=== PATIENT | male | born 1975 | race Caucasian/White ===

== ENCOUNTER 2024-12-30 17:03 | Inpatient (IN) | payer BC, SELFPAY ==
--- OUTSIDE RECORDS SUMMARY | 2024-12-30 17:06 | XMS_ITS | Clinical Summary ---
Author Organization [facility] Address [address] [place] [address] Care Team Providers Care Straightedge Man Name Role Phone Barbara Swan MD Unavailable Emerita Ruiz DO Primary Care Provider [phone] Allergies No known active allergies Medications Blood Sugar Diagnostic, Drum (ACCU-CHEK COMPACT PLUS TEST) strpIndications: Diabetes 1.5, managed as type 1 (HC) Dispense item covered by pt ins. 250.00 NIDDM type II - Test 2 times/day. Reason: Unstable diabetes 200 Strip 11 09/29/19 18 Active blood sugar diagnostic (BLOOD GLUCOSE TEST) stripIndications :Diabetes 1.5, managed as type 1 (HC) Dispense item covered by pt ins. E11.9 NIDDM type II - Test 2 times/day. Reason: High A1C 100 Each 11 06/30/20 18 Active blood-glucose meterIndications :Diabetes 1.5, managed as type 1 (HC) Dispense meter, test strips, lancets covered by pt ins. E11.9 NIDDM type II - Test 2 times/day. Reason: High A1C 1 Device 06/30/20 18 Active Cholecalciferol, Vitamin D3, 10,000 unit capsule Take 1 capsule by mouth once daily. 0 10/03/19 19 Active lancets (Accu-Chek FastClix Lancing Dev)Indications: Diabetes 1.5, managed as type 1 (HC) Dispense item covered by pt ins. 250.00 NIDDM type II - Test 2 times/day. Reason: Unstable diabetes 200 Each 11 09/25/19 Active levothyroxine (SYNTHROID) 112 mcg tabletIndication s:Hypothyroidism , unspecified type Take 1 Tablet (112 mcg) by mouth before breakfast. 90 Tablet 1 04/02/20 23 Active Additional Information Patient taking differently:112 mcg Oral BEFORE BREAKFAST,When he remembers, Reported on 08/24/2024 venlafaxine (EFFEXOR XR) 75 mg cp24 Extended-Release capsule Take 75 mg by mouth once daily with a meal. 07/07/20 Active semaglutide (Ozempic) 2 mg/dose (8 mg/3 mL) penIndications:D iabetes 1.5, managed as type 1 (HC) Inject 0.75 mL (2 mg) subcutaneous once weekly. 9 mL 3 03/03/20 24 Active atorvastatin (LIPITOR) 40 mg tabletIndication s:Diabetes 1.5, managed as type 1 (HC) Take 1 Tablet (40 mg) by mouth at bedtime. 90 Tablet 4 12/10/19 24 Active tamsulosin (FLOMAX) 0.4 mg capsuleIndicatio ns:Urinary frequency Take 1 Capsule (0.4 mg) by mouth once daily after a meal. 90 Capsule 1 12/10/19 24 Active LORazepam 1 mg tablet TAKE 1/2-1 TABLET BY MOUTH ONCE DAILY NEEDED FOR EMERGENT PANIC 07/25/20 24 Active empagliflozin (Jardiance) 25 mg tabletIndication s:Diabetes 1.5, managed as type 1 (HC) Take 1 Tablet (25 mg) by mouth once daily. 90 Tablet 3 08/24/20 24 Active hydrOXYzine HCL (ATARAX) 50 mg tabletIndication s:Insomnia, idiopathic Take 50 mg at bedtime 90 Tablet 3 08/24/20 24 Active metFORMIN (GLUCOPHAGE) 1,000 mg tabletIndication s:Diabetes 1.5, managed as type 1 (HC) Take 1 Tablet (1,000 mg) by mouth two times daily with meals. 180 Tablet 3 08/24/20 24 Active Semglee,insulin glarg-yfgn,Pen 100 unit/mL (3 mL) penIndications:D iabetes 1.5, managed as type 1 (HC) Inject 65 U subcutaneously daily 45 mL 3 08/24/20 24 Active pen needle (BD Insulin Pen Needle UF) 31 gauge x 5/16 (disposable insulin pen needle)Indicatio ns:Diabetes 1.5, managed as type 1 (HC) USE TO ADMINISTER INSULIN AT HOME DIRECTED 100 Each 3 08/24/20 24 Active sildenafil citrate (VIAGRA) 50 mg tabletIndication s:Erectile dysfunction of organic origin Take 1 Tablet (50 mg) by mouth once daily if needed for Erectile Dysfunction. Take 30 minutes to 4 hours before sexual activity. Max 100mg/24hr. 30 Tablet 08/24/20 24 Active semaglutide, weight loss, (Wegovy) 1.7 mg/0.75 mL subcutaneous penIndications:D iabetes 1.5, managed as type 1 (HC) Inject 1.7 mg subcutaneous once weekly. 6 mL 1 10/25/19 25 Active semaglutide (OZEMPIC) 1 mg/dose (4 mg/3 mL) subcutaneous penIndications:D iabetes 1.5, managed as type 1 (HC) Inject 1 mg subcutaneous once weekly. 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 Screening for endocrine, metabolic and immunity disorder 04/02/2015 Unspecified hypothyroidism 11/15/2007 Decreased libido 08/18/2007 Resolved Problems Problem Noted Date Diagnosed Date Resolved Date body odor 08/18/2007 12/15/2021 Encounters Date Type Department Care Team Description 10/31/2024 Telephone [facility] [address] [place] [address] Emerita Ruiz DO Prior Authorization (semaglutide, weight loss, (Wegovy) 1.7 mg/0.75 mL subcutaneous pen - CLOSED ) 10/30/2024 Telephone [facility] [address] [place], [place] [id number] Emerita Ruiz DO Medication Management (semaglutide, weight loss, (Wegovy) 1.7 mg/0.75 mL subcutaneous pen) 10/22/2024 Refill [facility] [address] [place] [address] Emerita Ruiz DO Refill Request (Ozempic) from Last 3 Months Immunizations Immunization Administration Dates Next Due COVID-19 VACCINE SPIKEVAX (M ODERNA 50MCG/0.5ML) 12YO+ PFS 07/09/2023 COVID-19 vaccine (Pfizer-Bio NTech 30mcg/0.3mL) PF, MDV 07/18/2021 INFLUENZA, IIV3 PF (AGE >= 6 MO) 06/08/2024 Influenza A (H1N1), Inactivated 07/31/2009 Influenza, IIV3 (Age 6-35 mos) 2,07/08/2011,08/25/2010,2008 Influenza, IIV3 (Age >=3 years) 06/13/2014,06/12 Influenza, IIV4 07/09/2023, 2,06/30/2018,2014 Influenza, IIV4 (=>6mos) MDV 07/18/2021,06/21/20,06/15/2019 Influenza, Whole Virus 06/16/2017 Td, Preservative Free (age > = 7 Years) 03/02/2008 Tdap 08/25/2021,06/10/2008 Family History Medical History Relation Name Comments Heart Disease Father Hypertension Father Thyroid Disease Father hyper Diabetes Maternal Grandmother Glaucoma Maternal Grandmother Thyroid Disease Mother hypo Relation Name Status Comments Father Maternal Grandmother Mother Social History Tobacco Use Types Packs/Day Years Used Date Smoking Tobacco: Never Smokeless Tobacco: Never Tobacco Cessation:Counseling Given: Yes Alcohol Use Standard Drinks/Week Comments Yes 0 (1 standard drink = 0.6 oz pur e alcohol) twice a month PHQ-2 Answer Date Recorded PHQ-2 TOTAL SCORE 2 03/23/2024 Social Connections Answer Date Recorded Do you often feel lonely or isolated from those around you? 0 04/27/2024 Financial Resource Strain Answer Date R ecorded Difficulty of Paying Living Expenses 3 04/27/2024 Difficulty of Paying Living Expenses Not on file 04/27/2024 Food Insecurity Answer Date Recorded Do you worry your food will run out before you are able to buy more? 1 04/27/2024 Transportation Needs Answer Date Record ed Does lack of transportation keep you from medica l appointments? 1 04/27/2024 Does lack of transportation keep you from work, meetings or getting things that you need? 1 04/27/2024 Housing Stability Answer Date Recorded What is your housing situation today? 1 04/27/2024 Utilities Answer Date Recorded Do you have trouble paying f or utilities (for example, heat, electricity, water, phone)? 1 04/27/2024 Sex and Gender Information Value Date Recorded Sex Assigned at Not on file Legal Sex Male 7:06 PM HEEL SEWER Gender Identity Not on file Sexual Orientation Straight 08/20/2024 1: 46 PM HEEL SEWER 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 Not on file Not on file Not on file Not on file Not on file Obstetrics History Last Filed Vital Signs Vital Sign Reading Time Taken Comments Blood Pressure 112/68 08/24/2024 9:37 AM HEEL SEWER Pulse 60 08/24/2024 9:37 AM HEEL SEWER Temperature 36.7 C (98.1 F) 04/27/2024 10:39 AM CDT Respiratory Rate 20 03/23/2024 9:24 AM CDT Oxygen Saturation 96% 04/27/2024 10:39 AM CDT Inhaled Oxygen Concentration - - Weight 96.2 kg (212 lb) 08/24/2024 9:37 AM HEEL SEWER Height 188.6 cm (6' 2.25) 08/24/2024 9:37 AM CS T Body Mass Index 27.04 08/24/2024 9:37 AM HEEL SEWER Plan of Treatment Health Maintenance Due Date Last Done Comments HIV for age 15-65 11/23/1991 Hepatitis C screening for ag e 18-79 1994 Pneumococcal series for age 6-49 (1 of 2 - PCV) 11/23/1995 Colonoscopy through age 75 2021 Depression screening for age 12+ 03/23/2025 03/23/2024, 04/02/2023, 01/30/2022, Additional history exists BMI (ht and wt on same day) for age 18+ 08/24/2025 08/24/2024, 03/23/2024, 04/02/2023, Additional history exists Lipids for age 45-75 03/23/2029 03/23/2024, 04/02/2023, 01/06/2022, Additional history exists Tetanus booster 08/25/2031 08/25/2021, 01/2008, 03/02/2008 Tdap Completed 08/25/2021, 06/10/2008 COVID-19 vaccine series Completed 05/13/20 24, 07/09/2023, 05/23/2022, Additional history exists Influenza Vaccine Completed 06/08/2024, , 06/23/2022, Additional history exists Procedures Procedure Name Priority Date/Time Associated Diagnosis Comments LIPID PANEL Routine 03/23/2024 9:11 AM CDT Diabetes 1.5, managed as type 1 (HC) from Last 3 Months or Most Recently Relevant to Health Maintenance Results * (ABNORMAL) LIPID PANEL (03/23/2024 9:11 AM CDT) CHOLESTEROL,TOTAL 203(H) 100 - 199 mg/dL 03/23/2024 7:17 PM CDT [facility] Comment: Cholesterol, Total Reference Ranges Desirable <200 mg/dL Borderline 200-239 mg/dL High >=240 mg/dL TRIGLYCERIDES 191(H) <150 mg/dL 03/23/2024 7:[address] [facility] HDL CHOLESTEROL 33(L) >40 mg/dL 7:[address] [facility] NON-HDL CHOLESTEROL 170(H) <145 mg/dl 03/23/2024 7:[address] [facility] CHOL/HDL RATIO 6.15(H) <4.50 03/23/2024 7:[address] [facility] LDL CHOLESTEROL 132(H) <=130 mg/dL 03/23/2024 7:[address] [facility] VLDL CHOLESTEROL 38(H) <=30 mg/dL 03/23/2024 7:[address] [facility] PROVIDER ORDERED STATUS RANDOM 03/23/2024 7:17 PM CDT [facility] Blood BLOOD SPECIMEN / Unknown Venipuncture / Unknown 03/23/2024 9:11 AM CDT 03/23/2024 9:15 AM CDT us Emerita Ruiz DO CHEMISTRY Final Res ult [facility] [address] [place] [id number], [place] from Last 3 Months or Most Recently Relevant to Health Maintenance Insurance Care Teams Straightedge Man Relationship Specialty Start Date End Date Emerita Ruiz DO [address] [place] [address] PCP - General Family Practice 09/24/17 Barbara Swan MD 11/03/07
[2024-12-30 17:31] VITALS: BP 115/81; PULSE 124; RESP 14; TEMP 36.7; O2SAT 96; BMI 27.0
--- NOTE | 2024-12-30 18:06 | CRLHL7_ITS ---
For Patients: As a result of the Century Cures Act, medical imaging exams and procedure reports are released immediately into your electronic medical record. You may view this report before your referring provider. If you have questions, please contact your health care provider. INDICATION: Right-sided abdominal pain COMPARISON: None. TECHNIQUE: CT of the abdomen and pelvis with intravenous contrast (100 milliliters Isovue 370). FINDINGS: Lung bases: No pleural effusion. Liver: Smooth hepatic contour. No suspicious hepatic lesions are identified. Gallbladder and biliary tree: Unremarkable CT appearance. Spleen: No splenomegaly. Pancreas: Mild fatty infiltration/atrophy of the pancreas. Adrenal glands: Normal. Kidneys and ureters: No hydroureteronephrosis. No suspicious renal lesions are identified. Bladder: Unremarkable CT appearance. Visualized reproductive organs: Mildly enlarged prostate. Gastrointestinal tract: No focal abnormally dilated loops of bowel. Normal appendix. Peritoneal cavity: No free fluid or free air. Lymph nodes: No enlarged abdominal or pelvic lymph nodes by CT size criteria. Vessels: No abdominal aortic aneurysm. Abdominal and pelvic wall: There is a small amount of fat stranding/scarring in the subcutaneous fat of the bilateral inferior/ventral abdominal wall. Bones: There are osseous degenerative changes. There is a left-sided L5 pars defect with grade 1 anterolisthesis of L5 on S1. Attenuated appearance of the L5-S1 posterior elements possibly postoperative from a prior decompression. IMPRESSION: 1. No acute findings in the abdomen or pelvis. 2. Chronic and incidental findings as detailed above. Please note that all CT scans at this facility use dose modulation, iterative reconstruction, and/or weight-based dosing when appropriate to reduce radiation dose to as low as reasonably achievable. Dictated by Juan Manuel Hart MD @ 12/30/2024 7:07:47 PM (Electronically Signed)
--- NOTE | 2024-12-30 18:08 | ED_ITS ---
HPI - Abdominal Pain General Chief Complaint: Abdominal Pain Stated Complaint: Vomiting,Stomach pain Time Seen by Provider: 12/30/24 17:57 History of Present Illness HPI narrative: Patient is a 49-year-old gentleman was insulin-dependent diabetic who comes in today with approximately 18 hours of right-sided abdominal pain. He has had profound nausea and vomiting. No blood in his stool or vomitus. No diarrhea. Patient is taking Ozempic and recently went up on the dose. He also has been out of his insulin needles. He states that he has been compliant with the remainder of his regiment including metformin hydroxyzine and Jardiance. Patient has had no previous abdominal surgeries. Pain is localized to the right lower quadrant with radiation to the umbilicus. It is 6/10 in intensity. Related Data Home Medications ?Medication ?Instructions ?Recorded ?Confirmed empagliflozin 25 mg tablet 25 mg PO DAILY 12/30/24 12/30/24 (Jardiance) hydroxyzine HCl 50 mg tablet 50 mg PO QPM 12/30/24 12/30/24 insulin glargine-yfgn 100 unit/mL 65 unit subcut DAILY 12/30/24 12/30/24 (3 mL) subcutaneous pen (Semglee (insulin glargine-yfgn) Pen) metformin 1,000 mg tablet 1,000 mg PO BID 12/30/24 12/30/24 semaglutide 1 mg/dose (4 mg/3 mL) 1 mg subcut 12/30/24 subcutaneous pen injector (Ozempic) Allergies Allergy/AdvReac Type Severity Reaction Status Date / Time No Known Drug Allergies Allergy Verified 12/30/24 17:30 Review of Systems Status of ROS Reports: 10 or more systems reviewed and unremarkable except as noted in History and below Exam Narrative: Exam Narrative: EXAM GENERAL: Patient appears ill. EYES: No scleral icterus. LYMPH: No supraclavicular or cervical lymphadenopathy. SKIN: Visible skin seen during exam normal or with benign process only. EXT: No dependent lower extremity pedal edema. HEART: Regular rate and rhythm with no murmurs, rubs, or gallops. LUNGS: Clear to auscultation bilaterally with no crackles or wheezes. ABD: Hypoactive bowel sounds with moderate pain to palpation right lower quadrant. PSYCH: Good eye contact, speech is not pressured. Const: Vital Signs, click to edit/add: Vital Signs - 24 hr 12/30/24 17:31 Temperature 98.0 F Pulse Rate [Pulse Oximeter] 124 H Respiratory Rate 14 Blood Pressure [Ri ght Upper Arm] 115/81 Pulse Oximetry 96 Oxygen Delivery Me thod Room Air Course Course ED Course: Patient seen and examined. IV started. Normal saline Zofran given. CBC comprehensive metabolic panel lipase lactate UA CT abdomen pelvis ordered. Vital Signs Vital signs: Initial Vital Signs Temperature 98.0 F 12/30/24 17:31 Temperature Source Temporal Artery Scan 12/30/24 17:31 Pulse Rate 124 H 12/30/24 17:31 Pulse Rhythm Regular 12/30/24 17:31 Respiratory Rate 14 12/30/24 17:31 Blood Pressure 115/81 12/30/24 17:31 Blood Pressure Mean 92 12/30/24 17:31 Blood Pressure Position Sitting 12/30/24 17:31 Pulse Oximetry 96 12/30/24 17:31 Oxygen Delivery Method Room Air 12/30/24 17:31 Vital Signs Temperature 98.0 F 12/30/24 17:31 Pulse Rate 124 H 12/30/24 17:31 Respiratory Rate 14 12/30/24 17:31 Blood Pressure 115/81 12/30/24 17:31 Pulse Oximetry 96 12/30/24 17:31 Oxygen Delivery Method Room Air 12/30/24 17:31 Temperature 98.0 F 12/30/24 17:31 Pulse Rate 124 H 12/30/24 17:31 Respiratory Rate 14 12/30/24 17:31 Blood Pressure 115/81 12/30/24 17:31 Pulse Oximetry 96 12/30/24 17:31 Oxygen Delivery Method Room Air 12/30/24 17:31 Medications Administered Medications: Generic Name Dose Route Start Last Admin Trade Name Freq PRN Reason Stop Dose Admin Sodium Chloride 1,000 mls @ 1,000 mls/hr 12/30/24 18:08 12/30/24 19:32 0.9 % Sodium Chloride 1000 Ml IV 12/30/24 19:07 Infused .Q1H ELIZABETH Infusion Sodium Chloride 1,000 mls @ 1,000 mls/hr 12/30/24 19:22 12/30/24 19:36 0.9 % Sodium Chloride 1000 Ml IV 12/30/24 20:21 1,000 mls/hr .Q1H ELIZABETH Administration Ondansetron HCl 4 mg 12/30/24 18:07 12/30/24 18:51 Ondansetron 2 Mg/Ml Inj IVP 12/30/24 18:08 4 mg ONCE ONE Administration Ondansetron HCl 4 mg 12/30/24 19:41 12/30/24 19:55 Ondansetron 2 Mg/Ml Inj IVP 12/30/24 19:42 4 mg ONCE ONE Administration MDM - Abdominal Pain MDM Narrative Medical decision making narrative: Patient is an insulin-dependent diabetic who presents with profound dehydration nausea vomiting and right-sided abdominal pain. CT of the abdomen pelvis is nonacute. He has significant ketones in his urine and has a significant metabolic acidosis. His blood sugars 225. He does take Ozempic which I do believe is contributing to his symptoms. I did visit with hospitalist and will be giving the patient 10 units of subcutaneous NovoLog. I have been aggressively hydrating the patient and the patient will be admitted for further evaluation and treatment. Lab Data Labs: Lab Results 12/30/24 12/30/24 Range/Units 18:10 19:00 WBC 17.06 H (4.50-11.00) K/uL RBC 5.93 H (4.30-5.90) m/uL Hgb 16.9 (13.5-17.5) gm/dL Hct 49.5 (37.0-53.0) % MCV 84 (80-100) fL MCH 29 (26-34) pg MCHC 34 (32-36) gm/dL RDW Coeff of Ngoc 11.9 (11.5-15.5) % Plt Count 299 (140-440) K/uL Neut % (Auto) 87.7 H (42.0-72.0) % Lymph % (Auto) 5.6 L (20-44) % Crane % (Auto) 4.6 (0.0-11.0) % Eos % (Auto) 0.1 (0.0-7.0) % Baso % (Auto) 0.2 (0.0-3.0) % Neut # (Auto) 15.00 H (1.7-7.0) K/uL Lymph # (Auto) 1.00 (0.90-2.90) K/uL Crane # (Auto) 0.80 (0.00-0.90) K/UL Eos # (Auto) 0.00 (0.00-0.50) K/uL Baso # (Auto) 0.00 (0.00-0.30) K/uL Abs Immat Gran (auto) 0.30 (0.00-0.30) K/uL Imm/Tot Granulo (auto) 1.8 % Sodium 139 (135-149) mmol/L Potassium 4.9 (3.6-5.1) mmol/L Chloride 101 (96-114) mmol/L Carbon Dioxide 9 L* (20-32) mmol/L Anion Gap 29 H (7-15) mEq/L BUN 23 (5-24) mg/dL Creatinine 1.1 (0.5-1.5) mg/dL Estimated Creat Clear 92.81 Estimated GFR 83 ml/min Glucose 225 H (60-115) mg/dL Lactate 3.5 H (0.5-1.9) mmol/L Calcium 8.9 (8.4-10.6) mg/dL Total Bilirubin 1.1 (0.1-1.5) mg/dL AST 32 (12-35) U/L ALT 35 (4-50) U/L Alkaline Phosphatase 102 (40-150) U/L Total Protein 7.7 (6.0-8.3) g/dL Albumin 4.9 (3.3-5.0) g/dL Lipase 27 (23-300) U/L Urine Color Yellow (Yellow) Urine Appearance Clear (Clear) Urine pH 5.5 (5.0-8.5) Ur Specific [place] >= 1.030 (1.000-1.030) Urine Protein Trace A (Negative) Urine Glucose (UA) 2+ A (Negative) Urine Ketones 4+ A (Negative) Urine Blood Negative (Negative) Urine Nitrite Negative (Negative) Urine Bilirubin Negative (Negative) Urine Urobilinogen 0.2 (0.2-1.0) Ur Leukocyte Esterase Negative (Negative) Urine RBC 0-2 (0-2) Urine WBC 0-2 (0-5) Ur Squamous Epith Cells None (None-Few) Urine Bacteria None (None) Discharge Plan Discharge Clinical Impression: Diabetic keto-acidosis Patient Disposition: Admitted As Observation Condition: Stable Activity Level: Other Discharge Diet: Other Prescriptions: No Action hydroxyzine HCl 50 mg tablet 50 mg PO QPM metformin 1,000 mg tablet 1,000 mg PO BID Jardiance 25 mg tablet 25 mg PO DAILY Ozempic 1 mg/dose (4 mg/3 mL) pen injector 1 mg subcut insulin glargine-yfgn [Semglee(insulin glarg-yfgn)Pen] 100 unit/mL (3 mL) insulin pen 65 unit subcut DAILY Follow Up/Referrals: Provider,Not a Local [Non-Staff] -
[2024-12-30] MEDS: 0.9 % SODIUM CHLORIDE 1000 ml 1,000 ML IV ×2 (18:50→19:36)
[2024-12-30] MEDS: ONDANSETRON 2 MG/ML inj 4 MG IVP ×3 (18:51→23:10)
[2024-12-30 18:54] LABS: Appearance Urine Clear (Clear); Bilirubin Urine Negative (Negative); Blood Urine Negative (Negative); Color Urine Yellow (Yellow); Glucose Urine 2+ (Negative); Ketones Urine 4+ (Negative); Leukocyte Esterase Urine Negative (Negative); Nitrite Urine Negative (Negative); Protein Urine Trace (Negative); Specific Gravity Urine >= 1.030 (1.000-1.030); Urobilinogen Urine 0.2 (0.2-1.0); pH Urine 5.5 (5.0-8.5)
[2024-12-30 19:08] LABS: Lactate* 3.5 mmol/L (0.5-1.9)
[2024-12-30 19:09] LABS: Basophils Percent Auto 0.2 % (0.0-3.0); Eosinophils Percent Auto 0.1 % (0.0-7.0); Hematocrit 49.5 % (37.0-53.0); Hemoglobin* 16.9 gm/dL (13.5-17.5); Immature Granulocytes Pct Auto 1.8 %; Lymphocytes Percent Auto 5.6 % (20-44); Mean Corpuscular HGB Conc 34 gm/dL (32-36); Mean Corpuscular Hemoglobin 29 pg (26-34); Mean Corpuscular Volume 84 fL (80-100); Monocytes Percent Auto 4.6 % (0.0-11.0); Neutrophils Percent Auto 87.7 % (42.0-72.0); Platelet Count* 299 K/uL (140-440); RDW Coefficient of Variation % 11.9 % (11.5-15.5); Red Blood Count 5.93 m/uL (4.30-5.90); White Blood Count* 17.06 K/uL (4.50-11.00)
[2024-12-30 19:12] LABS: Slide Review Reflex No
[2024-12-30 19:14] LABS: RBC Urine 0-2 (0-2); WBC Urine 0-2 (0-5)
--- OUTSIDE RECORDS SUMMARY | 2024-12-30 19:16 | XMS_ITS | Clinical Summary ---
Author Organization [facility] Address [address] [place] [address] Care Team Providers Care Custom Car Builder Name Role Phone Barbara Swan MD Unavailable [phone] Emerita Ruiz DO Primary Care Provider [phone] Allergies No known active allergies Medications Blood [...] Type Department Care Team Description 10/31/2024 Telephone [facility] [address] [place] [address] Emerita Ruiz DO Prior Authorization (semaglutide, weight loss, (Wegovy) 1.7 mg/0.75 mL subcutaneous pen - CLOSED ) 10/30/2024 Telephone [facility] [address] [place], [place] [phone] Emerita Ruiz DO Medication Management (semaglutide, weight loss, (Wegovy) 1.7 mg/0.75 mL subcutaneous pen) 10/22/2024 Refill [facility] [address] [place] [address] Emerita Ruiz DO Refill Request (Ozempic) from [...] on file Legal Sex 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 Gender Identity Not on file Sexual Orientation Straight 08/20/2024 1: 46 PM PLANT SCIENCE PROFESSOR 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 Not on file Not on file Not on file Not on file Not on file Obstetrics History Last Filed Vital Signs Vital Sign Reading Time Taken Comments Blood Pressure 112/68 08/24/2024 9:37 AM PLANT SCIENCE PROFESSOR Pulse 60 08/24/2024 9:37 AM PLANT SCIENCE PROFESSOR Temperature 36.7 C (98.1 F) 04/27/2024 10:39 AM CDT Respiratory Rate 20 03/23/2024 9:24 AM CDT Oxygen Saturation 96% 04/27/2024 10:39 AM CDT Inhaled Oxygen Concentration - - Weight 96.2 kg (212 lb) 08/24/2024 9:37 AM PLANT SCIENCE PROFESSOR Height 188.6 cm (6' 2.25) 08/24/2024 9:37 AM CS T Body Mass Index 27.04 08/24/2024 9:37 AM PLANT SCIENCE PROFESSOR Plan of Treatment Health Maintenance Due Date [...] - 199 mg/dL 03/23/2024 7:17 PM CDT [facility] Comment: Cholesterol, Total Reference Ranges Desirable <200 mg/dL Borderline 200-239 mg/dL High >=240 mg/dL TRIGLYCERIDES 191(H) <150 mg/dL 03/23/2024 7:17 PM CDT [facility] HDL CHOLESTEROL 33(L) >40 mg/dL 7:17 PM T [facility] NON-HDL CHOLESTEROL 170(H) <145 mg/dl 03/23/2024 7:17 PM CDT [facility] CHOL/HDL RATIO 6.15(H) <4.50 03/23/2024 7:17 PM T [facility] LDL CHOLESTEROL 132(H) <=130 mg/dL 03/23/2024 7:17 PM CDT [facility] VLDL CHOLESTEROL 38(H) <=30 mg/dL 03/23/2024 7:17 PM T [facility] PROVIDER ORDERED STATUS RANDOM 03/23/2024 7:17 PM CDT [facility] Blood BLOOD SPECIMEN / Unknown Venipuncture / Unknown 03/23/2024 9:11 AM CDT 03/23/2024 9:15 AM CDT us Emerita Ruiz DO CHEMISTRY Final Res ult [facility] [address] [place] [id number], [place] from Last 3 Months or Most Recently Relevant to Health Maintenance Insurance Care Teams Custom Car Builder Relationship Specialty Start Date End Date Emerita Ruiz DO [address] [place] [address] PCP - General Family Practice 09/24/17 Barbara Swan MD 11/03/07
[2024-12-30 19:26] LABS: Albumin* 4.9 g/dL (3.3-5.0); Chloride* 101 mmol/L (96-114); Potassium* 4.9 mmol/L (3.6-5.1); Sodium* 139 mmol/L (135-149)
[2024-12-30 19:29] LABS: Alanine Aminotransferase* 35 U/L (4-50); Alkaline Phosphatase* 102 U/L (40-150); Aspartate Amino Transferase* 32 U/L (12-35); Bilirubin Total* 1.1 mg/dL (0.1-1.5); Blood Urea Nitrogen* 23 mg/dL (5-24); Creatinine* 1.1 mg/dL (0.5-1.5); Est. Creatinine Clearance* 92.81; Estimated Glomerular Filt Rate 83 ml/min; Lipase* 27 U/L (23-300); Total Protein* 7.7 g/dL (6.0-8.3)
[2024-12-30 19:30] LABS: Calcium* 8.9 mg/dL (8.4-10.6); Glucose* 225 mg/dL (60-115)
[2024-12-30 19:35] LABS: Anion Gap 29 mEq/L (7-15)
[2024-12-30 19:41] LABS: Carbon Dioxide* 9 mmol/L (20-32)
[2024-12-30] MEDS: INSULIN ASPART 100 UNIT/ML 10 UNIT SUBCUT (20:06)
[2024-12-30] MEDS: 5 % DEXTROSE IN LAC RINGER'S 1,000 ML 250 ML IV (20:32)
--- NOTE | 2024-12-30 20:50 | P.IMHP_ITS ---
Assessment and Plan Assessment and plan (1) Diabetic keto-acidosis: Problem comment: Due to running out of insulin with ongoing use of empagliflozin lowering the blood sugar. Managed with subcutaneous insulin and close monitoring. Status: Acute (2) Lactic acidosis: Problem comment: Likely due to acute illness plus metformin therapy. Hold metformin. No apparent infection identified at this time.. Status: Acute (3) Right sided abdominal pain: Problem comment: Probably related to his DKA. Continue to re-evaluate for other causes of abdominal pain if symptoms do not resolve quickly Status: Acute (4) Intractable nausea and vomiting: Problem comment: Likely related to DKA. Continue to evaluate if symptoms do not resolve quickly Status: Acute (5) Diabetes mellitus type 1.5: Problem comment: I am concerned he has evolved in to a predominantly type 1 diabetic. He currently has contraindication to all his medications for type 2 diabetes, metformin, semaglutide, empagliflozin. I recommend he establish care with a safety technician to assist with management of his diabetes as soon as possible. In the meantime will likely need to be managed like a type 1 diabetic Status: Acute Plan 49-year-old male hospitalized with DKA. Also has lactic acidosis. This is likely a combination of factors including running out of insulin with ongoing use of empagliflozin and semaglutide and metformin. For now will need to treat his diabetes and complications with insulin alone. Initially will manage with subcu insulin, fluid resuscitation and close monitoring of electrolytes and monitoring for complications. Plan to initiate basal - bolus insulin and recommend outpatient endocrine follow-up. Total Time Spent Total Time Spent: Total time spent today is 85 minutes in coordination of care, reviewing outside records and discussion with patient and other providers ongoing management of DKA and diabetes Hospitalist- H&P: HPI History of Present Illness Date Seen: 12/30/24 Chief complaint: Vomiting,Stomach pain Narrative: Mingo Clements is a 49 year old male with diabetes mellitus type 1.5 presents with 1 day history of illness. Patient reported feeling well earlier in the week. He ran out of insulin taking his last dose of glargine on Wednesday, 4 days ago. On Wednesday he took an increased dose of Ozempic 0.75 ml (1.5mg) as prescribed by his doctor he had no symptoms of illness until yesterday when he noted that he had a headache and he was feeling fatigue. He has had a depressed appetite from the Ozempic but it seemed worse than usual yesterday. During the night last night he awoke at 4:00 a.m. with vomiting. He reports that he was vomiting about every 45 minutes. With the vomiting he had a right- sided abdominal pain. He has had continuous vomiting every 45 minutes through the day today. He has had minimal oral intake, primarily sips of water. Nonbloody emesis. 08/28/2010 he was diagnosed with diabetes mellitus. He was symptomatic with urinary frequency at that time. He was diagnosed by an safety technician at [facility] as having diabetes mellitus type 1.5 over a decade ago. He reports his blood sugars have been fairly well controlled with use of for medicines, empagliflozin 25 mg daily, metformin 1000 mg twice daily, semaglutide increased to 1.5 mg this past Wednesday and glargine 60 units every morning. Hemoglobin A1c was 7.5 on 08/24/2024. He has had no other complications of diabetes. He has not been hospitalized. No previous gastrointestinal problems. No previous gastrointestinal surgery. Review of Systems Narrative: Prior to the last 1-2 days he was feeling well [facility] Medical History (Updated 12/30/24 @ 21:17 by Piyush White MD) Depression ?F32.A - Depression, unspecified (ICD-10) Hypothyroidism ?E03.9 - Hypothyroidism, unspecified (ICD-10) Diabetes mellitus type 1.5 ?E13.9 - Other specified diabetes mellitus without complications (ICD-10) Surgical History (Updated 12/30/24 @ 21:06 by Piyush White MD) H/O vasectomy ?Z98.52 - Vasectomy status (ICD-10) H/O wisdom tooth extraction ?K08.409 - Partial loss of teeth, unspecified cause, unspecified class (ICD- 10) Family History (Updated 12/30/24 @ 21:06 by Piyush White MD) Father Heart disease High blood pressure Thyroid disease Mother Thyroid disease Social History (Updated 12/30/24 @ 21:08 by Piyush White MD) Narrative: Patient lives with his girlfriend Toshia in [facility]. 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 He does not smoke. He drinks alcohol once or twice a month. Code status is full. 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 Meds Home Medications and Allergies Home Medications ?Medication ?Instructions ?Recorded ?Confirmed ?Type empagliflozin 25 mg tablet 25 mg PO DAILY 12/30/24 12/30/24 History (Jardiance) hydroxyzine HCl 50 mg tablet 50 mg PO QPM 12/30/24 12/30/24 History insulin glargine-yfgn 100 unit/mL 65 unit subcut DAILY 12/30/24 12/30/24 History (3 mL) subcutaneous pen (Semglee (insulin glargine-yfgn) Pen) metformin 1,000 mg tablet 1,000 mg PO BID 12/30/24 12/30/24 History semaglutide 1 mg/dose (4 mg/3 mL) 1 mg subcut 12/30/24 History subcutaneous pen injector (Ozempic) Allergies Allergy/AdvReac Type Severity Reaction Status Date / Time No Known Drug Allergies Allergy Verified 12/30/24 17:30 Exam Narrative: Exam Narrative: He is alert appears in no distress. Gives his own history. Eyes normal. Oropharynx with marked dry mucous membranes. Neck is supple without mass or adenopathy. Respirations are clear to auscultation. Breathing is unlabored. Cardiovascular: S1, S2, regular rate and rhythm. No murmur gallop or rub. Abdomen: Bowel sounds active. Abdomen is soft with mild relatively diffuse right-sided tenderness. No focal tenderness. No mass. No peritonitis. External genitalia normal. Is intact pedal pulses. No edema. Intact sensation in his feet as well. No rash. Const: Vital Signs, click to edit/add: Vital Signs - 24 hr 12/30/24 17:31 Temperature 98.0 F Pulse Rate [Pulse Oximeter] 124 H Respiratory Rate 14 Blood Pressure [Ri ght Upper Arm] 115/81 Pulse Oximetry 96 Oxygen Delivery Me thod Room Air Hospitalist - H&P: Result Labs Labs: Short CBC 12/30/24 Range/Units 19:00 WBC 17.06 H (4.50-11.00) K/uL Hgb 16.9 (13.5-17.5) gm/dL Hct 49.5 (37.0-53.0) % Plt Count 299 (140-440) K/uL BMP 12/30/24 19:00 Sodium 139 Potassium 4.9 Chloride 101 Carbon Dioxide 9 L* BUN 23 Creatinine 1.1 Glucose 225 H Calcium 8.9 Liver Function 12/30/24 Range/Units 19:00 Total Bilirubin 1.1 (0.1-1.5) mg/dL AST 32 (12-35) U/L ALT 35 (4-50) U/L Alkaline Phosphatase 102 (40-150) U/L Albumin 4.9 (3.3-5.0) g/dL Urine 12/30/24 Range/Units 18:10 Urine Color Yellow (Yellow) Urine Appearance Clear (Clear) Urine pH 5.5 (5.0-8.5) Ur Specific [place] >= 1.030 (1.000-1.030) Urine Protein Trace A (Negative) Urine Glucose (UA) 2+ A (Negative) Imaging CT scan - abdomen: Radiologist's impression: INDICATION: Right-sided abdominal pain COMPARISON: None. TECHNIQUE: CT of the abdomen and pelvis with intravenous contrast (100 milliliters Isovue 370). FINDINGS: Lung bases: No pleural effusion. Liver: Smooth hepatic contour. No suspicious hepatic lesions are identified. Gallbladder and biliary tree: Unremarkable CT appearance. Spleen: No splenomegaly. Pancreas: Mild fatty infiltration/atrophy of the pancreas. Adrenal glands: Normal. Kidneys and ureters: No hydroureteronephrosis. No suspicious renal lesions are identified. Bladder: Unremarkable CT appearance. Visualized reproductive organs: Mildly enlarged prostate. Gastrointestinal tract: No focal abnormally dilated loops of bowel. Normal appendix. Peritoneal cavity: No free fluid or free air. Lymph nodes: No enlarged abdominal or pelvic lymph nodes by CT size criteria. Vessels: No abdominal aortic aneurysm. Abdominal and pelvic wall: There is a small amount of fat stranding/scarring in the subcutaneous fat of the bilateral inferior/ventral abdominal wall. Bones: There are osseous degenerative changes. There is a left-sided L5 pars defect with grade 1 anterolisthesis of L5 on S1. Attenuated appearance of the L5-S1 posterior elements possibly postoperative from a prior decompression. IMPRESSION: 1. No acute findings in the abdomen or pelvis. 2. Chronic and incidental findings as detailed above.
--- NOTE | 2024-12-30 20:57 | ED.NURSE ---
blood sugar taken before pt left to go to med surg floor. BS 241, pt slightly nauseous.
[2024-12-30 21:01] VITALS: BP 116/72; PULSE 112; RESP 20; TEMP 36.8; O2SAT 99; BMI 25.2
[2024-12-30 21:24] LABS: Troponin I* < 0.01 ng/mL (0.01-0.04)
[2024-12-30] MEDS: PROCHLORPERAZINE 5 MG/ML VIAL IV (21:31)
[2024-12-30] MEDS: INSULIN ASPART 100 UNIT/ML SUBCUT ×2 (21:33→23:05)
[2024-12-30] MEDS: INSULIN GLARGINE,HUM.REC.ANLOG 100 UNIT/ML INSULN.PEN 30 UNIT SUBCUT (21:35)
[2024-12-30 21:51] LABS: Magnesium* 1.9 mg/dL (1.5-2.6)
[2024-12-30 21:54] LABS: Phosphorus* 7.3 mg/dL (2.5-4.5)
[2024-12-30 23:00] VITALS: BP 102/57; PULSE 111; PULSE 112; PULSE 114; RESP 20; TEMP 37.2; O2SAT 98
[2024-12-30] MEDS: 5 % DEXTROSE IN LAC RINGER'S 1,000 ML 500 ML IV (23:04)
[2024-12-30 23:08] LABS: HCO3 VBG 14 mmol/L (21-28); PCO2 VBG 36 mmHG (40-50); PO2 VBG < 30.1 mmHG (25-47)
[2024-12-30 23:10] LABS: Lactate* 1.2 mmol/L (0.5-1.9); pH VBG 7.184 (7.32-7.43)
[2024-12-30 23:27] LABS: Chloride* 107 mmol/L (96-114); Potassium* 5.1 mmol/L (3.6-5.1); Sodium* 139 mmol/L (135-149)
[2024-12-30 23:30] LABS: Anion Gap 21 mEq/L (7-15); Blood Urea Nitrogen* 22 mg/dL (5-24); Carbon Dioxide* 11 mmol/L (20-32); Creatinine* 0.9 mg/dL (0.5-1.5); Est. Creatinine Clearance* 113.44; Estimated Glomerular Filt Rate 105 ml/min
[2024-12-30 23:31] LABS: Calcium* 8.2 mg/dL (8.4-10.6); Glucose* 305 mg/dL (60-115); Phosphorus* 3.6 mg/dL (2.5-4.5)
[2024-12-31] MEDS: INSULIN ASPART 100 UNIT/ML SUBCUT ×8 (00:50→14:56)
[2024-12-31] MEDS: 5 % DEXTROSE IN LAC RINGER'S 1,000 ML 250 ML IV ×2 (00:51→05:14)
[2024-12-31 03:00] VITALS: BP 103/64; PULSE 99; RESP 20; TEMP 37; O2SAT 93
--- NOTE | 2024-12-31 06:28 | PC.NURSE ---
End of shift report [id number]: Alert and oriented x 4. patient reporting nausea upon admission to floor, PRN zofran administered prior to admission not effective. MD updated and new order for PRN prochlorperazine. Patient reporting excessive thirst, education provided on signs and symptoms of diabetes. Bowel sounds active x 4 quadrants. Tolerating clear liquids well. Denies any blurry or double vision. Q2H BG checks with SS insulin administered per protocol. Denies any shortness of breath or chest pain. Transfers and ambulates independently.
[2024-12-31 06:40] LABS: Basophils Percent Auto 0.2 % (0.0-3.0); Eosinophils Percent Auto 0.3 % (0.0-7.0); Hematocrit 39.6 % (37.0-53.0); Hemoglobin* 13.9 gm/dL (13.5-17.5); Immature Granulocytes Pct Auto 0.9 %; Lymphocytes Percent Auto 14.6 % (20-44); Mean Corpuscular HGB Conc 35 gm/dL (32-36); Mean Corpuscular Hemoglobin 29 pg (26-34); Mean Corpuscular Volume 82 fL (80-100); Monocytes Percent Auto 8.9 % (0.0-11.0); Neutrophils Percent Auto 75.1 % (42.0-72.0); Platelet Count* 260 K/uL (140-440); RDW Coefficient of Variation % 11.8 % (11.5-15.5); Red Blood Count 4.81 m/uL (4.30-5.90); White Blood Count* 12.07 K/uL (4.50-11.00)
[2024-12-31 06:44] LABS: Lactate* 0.8 mmol/L (0.5-1.9)
[2024-12-31 06:50] LABS: Slide Review Reflex No
[2024-12-31 07:00] VITALS: BP 87/60; PULSE 91; PULSE 94; RESP 16; TEMP 36.8; O2SAT 95
[2024-12-31 07:09] LABS: Chloride* 110 mmol/L (96-114); Sodium* 137 mmol/L (135-149)
[2024-12-31 07:12] LABS: Anion Gap 7 mEq/L (7-15); Blood Urea Nitrogen* 18 mg/dL (5-24); Carbon Dioxide* 20 mmol/L (20-32); Creatinine* 0.7 mg/dL (0.5-1.5); Est. Creatinine Clearance* 145.85; Estimated Glomerular Filt Rate 114 ml/min
[2024-12-31 07:13] LABS: Calcium* 8.3 mg/dL (8.4-10.6); Glucose* 169 mg/dL (60-115)
[2024-12-31 07:47] LABS: PCO2 VBG 40 mmHG (40-50); PO2 VBG 63.4 mmHG (25-47); pH VBG 7.34 (7.32-7.43)
[2024-12-31 07:48] LABS: HCO3 VBG 22 mmol/L (21-28)
[2024-12-31] MEDS: INSULIN GLARGINE,HUM.REC.ANLOG 100 UNIT/ML INSULN.PEN 30 UNIT SUBCUT (08:38)
[2024-12-31 11:00] VITALS: BP 105/88; PULSE 103; RESP 16; TEMP 36.9; O2SAT 96
--- NOTE | 2024-12-31 12:27 | P.IMPN_ITS ---
Assessment and Plan Assessment and plan (1) Diabetic keto-acidosis: Problem comment: Due to running out of insulin with ongoing use of empagliflozin lowering the blood sugar. Managed with subcutaneous insulin and close monitoring. - 12/31 DKA resolved: pH now wnl (7.34), AG closed (7), BG<200 (169). Stop D5LR. Status: Resolved (2) Diabetes mellitus type 1.5: Problem comment: I am concerned he has evolved in to a predominantly type 1 diabetic. He currently has contraindication to all his medications for type 2 diabetes, metformin, semaglutide, empagliflozin. I recommend he establish care with a well site drilling engineer to assist with management of his diabetes as soon as possible. In the meantime will likely need to be managed like a type 1 diabetic - 12/31 DKA now resolved. Patient has not used mealtime insulin or ISS before. Based on what I am seeing in his current insulin needs and adjusting for the fact that he has been getting D5LR, I will start with 5units SA insulin with each meal plus ISS ACHS while continuing his current dose of LA insulin (divided to BID now). Due to lower BP and mild tachycardia, will keep him yet tonight for monitoring and teaching. Plan to d/c home tomorrow on LA insulin + mealtime + ISS. Status: Acute (3) Lactic acidosis: Problem comment: Likely due to acute illness plus metformin therapy. Hold metformin. No apparent infection identified at this time.. - 12/30 lactate 3.5 -> 1.2 -> 12/31 lactate 0.8 Status: Resolved (4) Right sided abdominal pain: Problem comment: Probably related to his DKA. Continue to re-evaluate for other causes of abdominal pain if symptoms do not resolve quickly Status: Resolved (5) Intractable nausea and vomiting: Problem comment: Likely related to DKA. Continue to evaluate if symptoms do not resolve quickly Status: Resolved Total Time Spent Total Time Spent: Today I spent 50 minutes seeing the patient, reviewing [facility] and EPIC notes/diagnostics/labs, discussing the care plan with our care team that includes social work, PT/OT, pharmacy, RT, fci and documenting my impressions and plan in the medical record. Subjective Time Seen by Provider: 08:28 Date Seen: 12/31/24 Interval history: Danny feels much better this morning. He is no longer vomiting or having abdominal pain. 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 He tells me that he saw an [employer] many years ago at [facility] when he was supposed to first start LA insulin, and the well site drilling engineer told him that he would likely convert to a type 1 diabetic within 5 years, but he feels renetta that he has continued to be a type 2 diabetic despite that prediction and it has now been over 10 years since that visit. He is struggling to believe that it could happen now since he has overcome the odds so far and his numbers were so good in September. He asked about the risks of going home today instead of tomorrow and we discussed the risk of hypoglycemia as well as recurrent DKA. He and his girlfriend demonstrated understanding. We also discussed how insulin has become an essential medication for him and he will need to look ahead to see if he has enough going forward and order the refills well ahead of time. We discussed using long-acting insulin with mealt gregory insulin and an insulin sliding scale and establishing care with Endocrinology for management of diabetes. Exam Narrative: Exam Narrative: General: No acute distress. Awake, alert, oriented x3. No pallor. No jaundice. Oropharynx: Clear. Mucous membranes moist. Cardiovascular: Mildly tachycardic, regular. No murmurs, gallops, or rubs. Respiratory: Clear to auscultation bilaterally. No wheezes or crackles. Abdomen: Bowel sounds present. Soft, nondistended, nontender. Extremities: No lower extremity edema. Const: Vital Signs, click to edit/add: Vital Signs - 24 hr 12/30/24 17:31 12/30/24 21:01 12/30/24 21:01 Temperature 98.0 F 98.3 F Pulse Rate Pulse Rate [Pulse Oximeter] 124 H 112 H Respiratory Rate 14 20 20 Blood Pressure [Ri ght Arm] 116/72 Blood Pressure [Ri ght Upper Arm] 115/81 Pulse Oximetry 96 99 99 Oxygen Delivery Me thod Room Air Room Air Room Air 12/30/24 23:00 12/30/24 23:00 12/30/24 23:00 Temperature 99.0 F Pulse Rate 111 H Pulse Rate [Pulse Oximeter] 112 H 114 H Respiratory Rate 20 20 Blood Pressure [Ri ght Arm] 102/57 L Blood Pressure [Ri ght Upper Arm] Pulse Oximetry 98 Oxygen Delivery Me thod Room Air 12/31/24 03:00 12/31/24 07:00 12/31/24 07:00 Temperature 98.6 F Pulse Rate 94 Pulse Rate [Pulse Oximeter] 99 91 Respiratory Rate 20 16 Blood Pressure [Ri ght Arm] 103/64 Blood Pressure [Ri ght Upper Arm] Pulse Oximetry 93 Oxygen Delivery Me thod Room Air 12/31/24 07:00 12/31/24 11:00 Temperature 98.2 F 98.5 F Pulse Rate Pulse Rate [Pulse Oximeter] 91 103 H Respiratory Rate 16 16 Blood Pressure [Ri ght Arm] 87/60 L 105/88 Blood Pressure [Ri ght Upper Arm] Pulse Oximetry 95 96 Oxygen Delivery Me thod Room Air Room Air Labs Labs: Laboratory Results - last 24 hr 12/30/24 12/30/24 12/30/24 18:10 19:00 20:56 WBC 17.06 H RBC 5.93 H Hgb 16.9 Hct 49.5 MCV 84 MCH 29 MCHC 34 RDW Coeff of Ngoc 11.9 Plt Count 299 Neut % (Auto) 87.7 H Lymph % (Auto) 5.6 L [place] % (Auto) 4.6 Eos % (Auto) 0.1 Baso % (Auto) 0.2 Neut # (Auto) 15.00 H Lymph # (Auto) 1.00 [place] # (Auto) 0.80 Eos # (Auto) 0.00 Baso # (Auto) 0.00 Abs Immat Gran (auto) 0.30 Imm/Tot Granulo (auto) 1.8 VBG pH VBG pCO2 VBG pO2 VBG HCO3 Sodium 139 Potassium 4.9 Chloride 101 Carbon Dioxide 9 L* Anion Gap 29 H BUN 23 Creatinine 1.1 Estimated Creat Clear 92.81 Estimated GFR 83 Glucose 225 H Lactate 3.5 H Calcium 8.9 Phosphorus 7.3 H* Magnesium 1.9 Total Bilirubin 1.1 AST 32 ALT 35 Alkaline Phosphatase 102 Troponin I < 0.01 Total Protein 7.7 Albumin 4.9 Lipase 27 TSH 1.150 Urine Color Yellow Urine Appearance Clear Urine pH 5.5 Ur Specific [place] >= 1.030 Urine Protein Trace A Urine Glucose (UA) 2+ A Urine Ketones 4+ A Urine Blood Negative Urine Nitrite Negative Urine Bilirubin Negative Urine Urobilinogen 0.2 Ur Leukocyte Esterase Negative Urine RBC 0-2 Urine WBC 0-2 Ur Squamous Epith Cells None Urine Bacteria None Lab Acknowledgement Test Added 12/30/24 12/30/24 12/31/24 21:39 23:04 06:05 WBC 12.07 H RBC 4.81 Hgb 13.9 Hct 39.6 MCV 82 MCH 29 MCHC 35 RDW Coeff of Ngoc 11.8 Plt Count 260 Neut % (Auto) 75.1 H Lymph % (Auto) 14.6 L [place] % (Auto) 8.9 Eos % (Auto) 0.3 Baso % (Auto) 0.2 Neut # (Auto) 9.10 H Lymph # (Auto) 1.80 [place] # (Auto) 1.10 H Eos # (Auto) 0.00 Baso # (Auto) 0.00 Abs Immat Gran (auto) 0.10 Imm/Tot Granulo (auto) 0.9 VBG pH 7.184 L* 7.34 VBG pCO2 36 L 40 VBG pO2 < 30.1 63.4 H VBG HCO3 14 L 22 Sodium 139 137 Potassium 5.1 4.0 Chloride 107 110 Carbon Dioxide 11 L 20 Anion Gap 21 H 7 BUN 22 18 Creatinine 0.9 0.7 Estimated Creat Clear 113.44 145.85 Estimated GFR 105 114 Glucose 305 H 169 H Lactate 1.2 0.8 Calcium 8.2 L 8.3 L Phosphorus 3.6 2.0 L Magnesium Total Bilirubin AST ALT Alkaline Phosphatase Troponin I Total Protein Albumin Lipase TSH Urine Color Urine Appearance Urine pH Ur Specific [place] Urine Protein Urine Glucose (UA) Urine Ketones Urine Blood Urine Nitrite Urine Bilirubin Urine Urobilinogen Ur Leukocyte Esterase Urine RBC Urine WBC Ur Squamous Epith Cells Urine Bacteria Lab Acknowledgement Test Added
[2024-12-31 15:00] VITALS: BP 99/73; PULSE 94; RESP 18; TEMP 36.9; O2SAT 96
--- NOTE | 2024-12-31 15:38 | PC.NURSE ---
Shift Note: Pt friendly and cooperative with cares. He states he feels good today, and complains of 1/10 headache. Accuchecks have ranged from 191 to 265 throughout this shift. Pcts spent extended periods of time discussing diabetic education including differences in short and long acting insulins, hypoglycemia, and food choices aligning with a diabetic diet. Pt states he would like to discharge today if at all possible. Dr. White updated.
--- NOTE | 2024-12-31 17:25 | P.DS_ITS ---
DS: Providers Provider Date Seen: 12/31/24 Date of admission: 12/30/24 20:56 Primary care physician: Emerita Ruiz DO Admitting Clinician: Piyush White MD Attending Physician on discharge: Piyush White MD Date of Discharge: 12/31/24 DS: Diagnosis Discharge Diagnosis (1) Diabetic keto-acidosis: Status: Resolved Problem details: Due to running out of insulin with ongoing use of empagliflozin lowering the blood sugar. Managed with subcutaneous insulin and close monitoring. - 12/31 DKA resolved: pH now wnl (7.34), AG closed (7), BG<200 (169). Stop D5LR. (2) Diabetes mellitus type 1.5: Status: Acute Problem details: I am concerned he has evolved in to a predominantly type 1 diabetic. He currently has contraindication to all his medications for type 2 diabetes, metformin, semaglutide, empagliflozin. I recommend he establish care with a aviation support equipment repairer to assist with management of his diabetes as soon as possible. In the meantime will likely need to be managed like a type 1 diabetic - 12/31 DKA now resolved. Patient has not used mealtime insulin or ISS before. Based on what I am seeing in his current insulin needs and adjusting for the fact that he has been getting D5LR, I will start with 5units SA insulin with each meal plus ISS ACHS while continuing his current dose of LA insulin (divided to BID now). Due to lower BP and mild tachycardia, will keep him yet tonight for monitoring and teaching. Plan to d/c home tomorrow on LA insulin + mealtime + ISS. (3) Lactic acidosis: Status: Resolved Problem details: Likely due to acute illness plus metformin therapy. Hold metformin. No apparent infection identified at this time.. - 12/30 lactate 3.5 -> 1.2 -> 12/31 lactate 0.8 (4) Right sided abdominal pain: Status: Resolved Problem details: Probably related to his DKA. Continue to re-evaluate for other causes of abdominal pain if symptoms do not resolve quickly (5) Intractable nausea and vomiting: Status: Resolved Problem details: Likely related to DKA. Continue to evaluate if symptoms do not resolve quickly DS: Summary Hospital Course Hospital Course: 49-year-old male admitted to the hospital with diabetic ketoacidosis associated with intractable nausea and vomiting and right-sided abdominal pain. Patient had previously been diagnosed with diabetes mellitus type 1.5. He had been off insulin for about 3 or 4 days prior to admission and came in with clinical parents of diabetic ketoacidosis. He was treated with IV fluids, correction of a electrolytes and resumption of insulin. With this his anion gap metabolic acidosis resolved overnight.. Clinical symptoms of illness also resolved. He is anxious to go. He was advised to stay 1 more day because of the need to better determine his insulin requirements. He insists on discharge today. I told the patient that I thought he had evolved to a type 2 diabetic. I have asked him to stop his semaglutide, metformin, Jardiance. He will be on basal bolus insulin. Will start on insulin glargine 20 units twice daily and NovoLog 12 units with each meal. I warned him of the risk of hypoglycemia and discussed how to manage his insulin in the event of hypoglycemia as well as use of carbohydrates. I emphasized that he should not ever stop taking insulin since I believe he is now a type 1 diabetic. Status at Discharge Overall status at discharge: patient is progressing back to baseline Time Spent with Patient Time attestation: Total time spent providing and/or coordinating discharge services: 20 minutes Exam Const: Vital Signs, click to edit/add: Vital Signs - 24 hr 12/30/24 17:31 12/30/24 21:01 12/30/24 21:01 Temperature 98.0 F 98.3 F Pulse Rate Pulse Rate [Pulse Oximeter] 124 H 112 H Respiratory Rate 14 20 20 Blood Pressure [Ri ght Arm] 116/72 Blood Pressure [Ri ght Upper Arm] 115/81 Pulse Oximetry 96 99 99 Oxygen Delivery Mi thod Room Air Room Air Room Air 12/30/24 23:00 12/30/24 23:00 12/30/24 23:00 Temperature 99.0 F Pulse Rate 111 H Pulse Rate [Pulse Oximeter] 112 H 114 H Respiratory Rate 20 20 Blood Pressure [Ri ght Arm] 102/57 L Blood Pressure [Ri ght Upper Arm] Pulse Oximetry 98 Oxygen Delivery Mi thod Room Air 12/31/24 03:00 12/31/24 07:00 12/31/24 07:00 Temperature 98.6 F Pulse Rate 94 Pulse Rate [Pulse Oximeter] 99 91 Respiratory Rate 20 16 Blood Pressure [Ri ght Arm] 103/64 Blood Pressure [Ri ght Upper Arm] Pulse Oximetry 93 Oxygen Delivery Me thod Room Air 12/31/24 07:00 12/31/24 11:00 12/31/24 15:00 Temperature 98.2 F 98.5 F 98.4 F Pulse Rate Pulse Rate [Pulse Oximeter] 91 103 H 94 Respiratory Rate 16 16 18 Blood Pressure [Ri ght Arm] 87/60 L 105/88 99/73 Blood Pressure [Ri ght Upper Arm] Pulse Oximetry 95 96 96 Oxygen Delivery Me thod Room Air Room Air Room Air 12/31/24 15:00 Temperature Pulse Rate Pulse Rate [Pulse Oximeter] 94 Respiratory Rate 18 Blood Pressure [Ri ght Arm] Blood Pressure [Ri ght Upper Arm] Pulse Oximetry Oxygen Delivery Me thod DS: Data Data Completed and Pending Labs on day of discharge: Labs from last 24 hours 12/31/24 12/30/24 12/30/24 06:05 23:04 21:39 WBC 12.07 H RBC 4.81 Hgb 13.9 Hct 39.6 MCV 82 MCH 29 MCHC 35 RDW Coeff of Ngoc 11.8 Plt Count 260 Neut % (Auto) 75.1 H Lymph % (Auto) 14.6 L [place] % (Auto) 8.9 Eos % (Auto) 0.3 Baso % (Auto) 0.2 Neut # (Auto) 9.10 H Lymph # (Auto) 1.80 [place] # (Auto) 1.10 H Eos # (Auto) 0.00 Baso # (Auto) 0.00 Abs Immat Gran (auto) 0.10 Imm/Tot Granulo (auto) 0.9 VBG pH 7.34 7.184 L* VBG pCO2 40 36 L VBG pO2 63.4 H < 30.1 VBG HCO3 22 14 L Sodium 137 139 Potassium 4.0 5.1 Chloride 110 107 Carbon Dioxide 20 11 L Anion Gap 7 21 H BUN 18 22 Creatinine 0.7 0.9 Estimated Creat Clear 145.85 113.44 Estimated GFR 114 105 Glucose 169 H 305 H Lactate 0.8 1.2 Calcium 8.3 L 8.2 L Phosphorus 2.0 L 3.6 Magnesium Total Bilirubin AST ALT Alkaline Phosphatase Troponin I Total Protein Albumin Lipase TSH Urine Color Urine Appearance Urine pH Ur Specific [place] Urine Protein Urine Glucose (UA) Urine Ketones Urine Blood Urine Nitrite Urine Bilirubin Urine Urobilinogen Ur Leukocyte Esterase Urine RBC Urine WBC Ur Squamous Epith Cells Urine Bacteria Lab Acknowledgement Test Added 12/30/24 12/30/24 12/30/24 20:56 19:00 18:10 WBC 17.06 H RBC 5.93 H Hgb 16.9 Hct 49.5 MCV 84 MCH 29 MCHC 34 RDW Coeff of Ngoc 11.9 Plt Count 299 Neut % (Auto) 87.7 H Lymph % (Auto) 5.6 L [place] % (Auto) 4.6 Eos % (Auto) 0.1 Baso % (Auto) 0.2 Neut # (Auto) 15.00 H Lymph # (Auto) 1.00 [place] # (Auto) 0.80 Eos # (Auto) 0.00 Baso # (Auto) 0.00 Abs Immat Gran (auto) 0.30 Imm/Tot Granulo (auto) 1.8 VBG pH VBG pCO2 VBG pO2 VBG HCO3 Sodium 139 Potassium 4.9 Chloride 101 Carbon Dioxide 9 L* Anion Gap 29 H BUN 23 Creatinine 1.1 Estimated Creat Clear 92.81 Estimated GFR 83 Glucose 225 H Lactate 3.5 H Calcium 8.9 Phosphorus 7.3 H* Magnesium 1.9 Total Bilirubin 1.1 AST 32 ALT 35 Alkaline Phosphatase 102 Troponin I < 0.01 Total Protein 7.7 Albumin 4.9 Lipase 27 TSH 1.150 Urine Color Yellow Urine Appearance Clear Urine pH 5.5 Ur Specific [place] >= 1.030 Urine Protein Trace A Urine Glucose (UA) 2+ A Urine Ketones 4+ A Urine Blood Negative Urine Nitrite Negative Urine Bilirubin Negative Urine Urobilinogen 0.2 Ur Leukocyte Esterase Negative Urine RBC 0-2 Urine WBC 0-2 Ur Squamous Epith Cells None Urine Bacteria None Lab Acknowledgement Test Added Discharge Plan Discharge Disposition: Home, Self-Care Date of Admission: 12/30/24 20:56 Attending Provider on Discharge: Piyush White Primary Care Provider: Emerita Ruiz Condition: Stable Anticipated Discharge Date/Time: 12/31/24 17:06 Discharge Medications: New insulin aspart U-100 [Novolog FlexPen U-100 Insulin] 100 unit/mL (3 mL) insulin pen 12 unit subcut TIDWMEAL Qty: 32.4 3RF Continued hydroxyzine HCl 50 mg tablet 50 mg PO QPM Changed insulin glargine-yfgn [Semglee(insulin glarg-yfgn)Pen] 100 unit/mL (3 mL) insulin pen 20 unit subcut BID Qty: 3 0RF Discontinued metformin 1,000 mg tablet 1,000 mg PO BID Jardiance 25 mg tablet 25 mg PO DAILY Ozempic 1 mg/dose (4 mg/3 mL) pen injector 0.75 mg subcut .week Discharge Orders: Discharge Order (Routine); Ordered 12/31/24 Ordered By: Piyush White Patient Education: Insulin Aspart Protamine/Insulin Aspart (By injection) Additional Instructions: Make an appointment with an aviation support equipment repairer as soon as possible. The aviation support equipment repairer can guide your ongoing evaluation and treatment of diabetes. Possibly you will be able to get a continuous glucose monitor to reduce finger pokes and an insulin pump to improve insulin delivery. Check blood sugars 3 times a day before meals and at bedtime. Activity Level: Activity as Tolerated and Other Discharge Diet: Diabetic and Other Follow Up Appointments: Emerita Ruiz DO [Primary Care Provider] - Provider,Not a Local [Non-Staff] - Forms: dooub Info Instructions
--- NOTE | 2024-12-31 19:20 | PC.NURSE ---
Discharge: Patient pleasant and cooperative, A&O. VSS, afebrile. SpO2 maintained above 90% on RA. IV removed with tip intact. Discharge instructions provided, all questions answered. Discharged to home
== END 2024-12-31 18:37 | disposition home or self-care (01) | DRG 420 ==
LOC: ED 20:02 → MEDSURG 20:10
PROVIDERS: Admitting Provider Family Medicine; Emergency Provider Internal Medicine; PCP Family Medicine; Visit Provider Family Medicine
DX: E10.10 Type 1 diabetes mellitus with ketoacidosis without coma (principal); Z79.4 Long term (current) use of insulin; Z79.85 Long-term (current) use of injectable non-insulin antidiabetic drugs; Z79.84 Long term (current) use of oral hypoglycemic drugs; E86.0 Dehydration; R10.31 Right lower quadrant pain; R11.2 Nausea with vomiting, unspecified; E03.9 Hypothyroidism, unspecified; F32.A Depression, unspecified
CPT/HCPCS: 36415; 74177; 80048; 80053; 81001; 81003; 82803; 82962; 83605; 83690; 83735; 84100; 84443; 84484; 85025; 93005; 99284; 99285; J0780; J1815; J2405; J7030; Q9967